=== PATIENT | male | born 1960 | race Caucasian/White ===

== ENCOUNTER 2016-10-21 04:21 | Emergency (ER) | payer BC, OTHER ==
[2016-10-21] MEDS ORDERED: Metoprolol Tartrate 5 MG/5 ML SDV IVPUSH ONE (04:47)
[2016-10-21] MEDS ORDERED: Famotidine 20 MG/2 ML SDV IVPUSH ONE (04:47)
[2016-10-21] MEDS ORDERED: Ticagrelor 90 MG Tab PO ONE (04:47)
--- NOTE | 2016-10-21 04:47 | EDM.PDOC ---
ED HPI GENERAL MEDICAL PROBLEM - General Chief Complaint: General Stated Complaint: chest pain Time Seen by Provider: 10/21/16 04:40 Source of Information: Reports: Patient, EMS, Old Records ([facility] EMR. No paper hospital chart available.) History Limitations: Reports: No Limitations - History of Present Illness INITIAL COMMENTS - FREE TEXT/NARRATIVE: The patient was brought to the emergency room via ambulance with basic transport with one sublingual nitroglycerin tablet and 4 baby aspirin chew and swallow provided by the EMT. The patient has been having some intermittent retrosternal pressure with radiation to the jaw regions bilaterally and the left arm associated with paresthesias, mild diaphoresis, heart flutter, and mild dyspnea with initial pain rated at 6/10 and improvement to 4/10 after arrival to our emergency room. His symptoms started at about 16:00 hours on and did go to work both Monday night and , however persistent symptoms this evening. He is also noted some decreased exercise tolerance during the last few days. No recent history of abdominal pain, heartburn, nausea , diarrhea, melena, gross hematochezia, or any food intolerance, including fatty foods, etc.. The patient also denies any recent fever, cough, wheezing, dyspnea, etc.. Did not take any medications for the above symptoms, although he has not been taking any of his medications for about 6 months and just restarted his medications this past evening. Onset: Gradual Onset Date: 10/19/16 Onset Time: 16:00 Duration: Intermittent Location: Reports: Neck, Chest, Back, Upper Extremity, Left, Radiates to (As above). Denies: Head, Face, Abdomen, Upper Extremity, Right Quality: Reports: Pressure, Stabbing Severity: Moderate Improves with: Reports: None Worsens with: Reports: Breathing (Borderline). Denies: Movement Context: Reports: Other (As above) Associated Symptoms: Reports: Chest Pain, Diaphoresis, Shortness of Breath. Denies: Confusion, Cough, Fever/Chills, Headaches, Loss of Appetite, Malaise, Nausea/Vomiting, Seizure, Syncope, Weakness Treatments [employer]: Reports: Aspirin (As above), Nitroglycerin (As above) Arm Pain Score (Numeric/FACES): 4 - Related Data Allergies Allergy/AdvReac Type Severity Reaction Status Date / Time No Known Allergies Allergy Verified 10/21/16 04:23 Home Meds: Home Meds Hydrochlorothiazide 25 mg PO DAILY 10/21/16 [History] Lisinopril 20 mg PO DAILY 10/21/16 [History] Past Medical History HEENT History: Reports: Impaired Vision, Other (See Below). Denies: Allergic Rhinitis, Cataract, Glaucoma, Hard of Hearing, Macular Degeneration, Retinal Detachment Other HEENT History: Patient wears glasses Cardiovascular History: Reports: None, Hypertension. Denies: Aneurysm, Arrhythmia, Blood Clots/VTE/DVT, CAD, Heart Failure, Heart Murmur, High Cholesterol, MO, PVD, Syncope Respiratory History: Reports: None. Denies: Asthma, Bronchitis, Recurrent, COPD , Intubation, Previous, PE, Pneumothorax, Sleep Apnea, TB Gastrointestinal History: Reports: Colon Polyp, Other (See Below). Denies: Bowel Obstruction, Celiac Disease, Cholelithiasis, Chronic Constipation, Chronic Diarrhea, Diverticulosis, Gastritis, GERD, GI Bleed, Hepatitis, Hiatal Hernia, Inflammatory Bowel Disease, Irritable Bowel Syndrome, Jaundice, Pancreatitis, PUD Other Gastrointestinal History: Current multiple colonic polyps with 7 polyps removed at age 49 and subsequent polypectomies one year thereafter Genitourinary History: Reports: BPH. Denies: Acute Renal Failure, Chronic Renal Insuffiency, Renal Calculus, STD, Urinary Incontinence, UTI, Recurrent Musculoskeletal History: Reports: Arthritis, Back Pain, Chronic, Fracture, Osteoarthritis, Other (See Below). Denies: Amputation, Gout, Neck Pain, Chronic , RA, SLE Other Musculoskeletal History: Nasal fracture at age 24, left thumb fracture at age 36 Neurological History: Reports: None. Denies: Cerebral Aneurysms, Concussion, CVA, Head Trauma, Neuropathy, Peripheral, Seizure, TIA Psychiatric History: Reports: None, Anxiety, Depression. Denies: Abuse, Victim of, ADD, ADHD, Addiction, Psych Hospitalization(s), PTSD, Suicide Attempt Endocrine/Metabolic History: Denies: Diabetes, Type I, Diabetes, Type II, Hypothyroidism, IDDM Hematologic History: Reports: None. Denies: Anemia, Blood Transfusion(s), Iron Deficiency Immunologic History: Reports: None. Denies: AIDS, HIV, SLE Oncologic (Cancer) History: Reports: None. Denies: Basal Cell Carcinoma, Hodgkin's Lymphoma, Leukemia, Lymphoma, Malignant Melanoma, Non-Hodgkin's Lymphoma, Squamous Cell Carcinoma Dermatologic History: Reports: Other (See Below). Denies: Eczema, Psoriasis Other Dermatologic History: Facial papilloma - Infectious Disease History Infectious Disease History: Reports: Chicken Pox, Measles, Mumps. Denies: C- Difficile, Meningitis, Mononucleosis, MRSA, Pertussis (Whooping Cough), Rheumatic Fever, Rubella, Scarlet Fever, Shingles, TB, VRE - Past Surgical History Head Surgeries/Procedures: Reports: None HEENT Surgical History: Reports: Adenoidectomy, Oral Surgery, Tonsillectomy, Other (See Below). Denies: Cataract Surgery, Eye Surgery, Laser Surgery, LASIK , Myringotomy w Tube(s), Naso-Sinus Surgery Other HEENT Surgeries/Procedures: Tonsillectomy at age 17, multiple teeth extractions with complete upper dentures Cardiovascular Surgical History: Reports: None. Denies: Varicose Respiratory Surgical History: Reports: None. Denies: Thoracentesis GI Surgical History: Reports: Colonoscopy, Hernia, Inguinal, Polypectomy, Other (See Below). Denies: Appendectomy, Cholecystectomy, EGD, Hernia, Abdominal, Hernia Repair/Other Other GI Surgeries/Procedures: Bilateral inguinal hernia repair at about age 25 , initial colonoscopy at age 49 with repeat procedure at age 50 with multiple polypectomies 7 character as above Male Surgical History: Reports: Circumcision, Vasectomy, Other (See Below) Other Male Surgeries/Procedures: Circumcision as an infant, vasectomy Endocrine Surgical History: Denies: Thyroid Biopsy Neurological Surgical History: Denies: C-Spine, Discectomy, Laminectomy, Sacral Spine, Spinal Fusion, Vertebroplasty Musculoskeletal Surgical History: Reports: ORIF, Other (See Below). Denies: Amputation, Arthroscopic Procedure, Carpal Tunnel, Ganglion Cyst, Joint Replacement, Shoulder Surgery Other Musculoskeletal Surgeries/Procedures:: ORIF/pin placement of left thumb fracture at about age 36 Oncologic Surgical History: Reports: None Dermatological Surgical History: Reports: None - Past Imaging History Past Imaging History: Reports: None Social & Family History - Family History HEENT: Reports: None. Denies: Glaucoma, Macular Degeneration, Retinal Detachment Cardiac: Reports: Arrhythmia, CAD, Hypertension, MO, Pacemaker, Other (See Below ). Denies: Aneurysm, Blood Clots/VTE/DVT, Heart Failure, Syncope Other Cardiac Family History: Maternal grandmother with history of recurrent MO , paternal grandfather pacemaker in his 70s, mother with hypertension Respiratory: Reports: COPD, Sleep Apnea, Other (See Below). Denies: Asthma, PE , Pneumothorax Other Respiratory Family Hisory: Maternal grandfather with COPD with history of tobacco use, father with sleep apnea GI: Reports: None. Denies: Celiac Disease, Cholelithiasis, Cirrhosis, Colon Polyps, GERD, Inflammatory Bowel Disease, Irritable Bowel Syndrome, PUD : Reports: None, Diabetic Nephropathy, Renal Disease/Insufficiency, Other ( See Below). Denies: Dialysis, Renal Calculus Other Family History: Mother with diabetic nephropathy OBGYN: Reports: None. Denies: Endometriosis, Recurrent Spontaneous Musculoskeletal: Reports: None. Denies: Gout, RA, SLE Neurological: Reports: Alzheimers Disease, CVA, Dementia, Other (See Below). Denies: Cerebral Aneurysms, Migraines, MS, Parkinson's, Seizure, TIA Other Neurological Family History: Father with dementia, mother with some mild Alzheimer's disease, mother with stroke in her 70s Psychiatric: Reports: None. Denies: Abuse, Victim of, ADD, ADHD, Anxiety, Depression, Hallucinations, Mood Swings Endocrine/Metabolic: Reports: Diabetes, type II, IDDM, Other (See Below). Denies: Diabetes, Type I, Hypothyroidism Other Endocrine/Metabolic Family History: Mother with IDDM Hematologic: Reports: None. Denies: Anemia, Transfusion Reaction Immunologic: Reports: None. Denies: AIDS, HIV, SLE Dermatologic: Reports: None. Denies: Eczema, Psoriasis Oncologic: Reports: None. Denies: Colon, Hodgkin's Lymphoma, Leukemia, Lymphoma , Non-Hodgkin's Lymphoma, Prostate, Skin - Tobacco Use Smoking Status *Q: Current Every Day Smoker Tobacco Use Within Last Twelve Months: Cigarettes Years of Tobacco use: 35 Packs/Tins Daily: 0.5 (At age 21, maximum use of 2 packs per day) Smoking Cessation Information Provided To Patient: Yes Second Hand Smoke Exposure: No Second Hand Smoke Education Provided: No - Caffeine Use Caffeine Use: Reports: Soda (2 L of soda per day). Denies: Coffee, Energy Drinks, Tea - Alcohol Use Alcohol Use History: Yes Days Per Week of Alcohol Use: 0 (No previous DWIs, problems with alcohol abuse, etc.) Number of Drinks Per Day: 2 (Usually mixed drinks for holidays) Total Drinks Per Week: 0 Alcohol Use in Last Twelve Months: Yes Alcohol Use Frequency: Socially - Recreational Drug Use Recreational Drug Use: No Drug Use in Last 12 Months: No Recreational Drug Type: Denies: Amphetamines (Speed), Benzodiazepines, Inhalants (Glues, Solvents, Aerosols), LSD (Acid), Marijuana/Hashish, Methamphetamine, Morphine - Living Situation & Occupation Living situation: Reports: ( in 2013 from his second with one child from that relationship, previous from first in the with 2 children from that relationship) Occupation: Employed ([employer]) ED ROS GENERAL - Review of Systems Review Of Systems: See Below Constitutional: Reports: Fatigue (As above), Diaphoresis. Denies: Fever, Chills , Malaise, Weakness, Night Sweats, Decreased Appetite, Weight Loss, Weight Gain HEENT: Reports: Glasses. Denies: Contact Lenses, Dental Pain, Ear Discharge, Ear Pain, Eye Pain, Hearing Loss, Rhinitis, Sinus Problem, Throat Pain, Throat Swelling, Vertigo, Vision Change Respiratory: Reports: Shortness of Breath, Pleuritic Chest Pain (Borderline). Denies: Wheezing, Cough, Sputum Cardiovascular: Reports: Chest Pain, Blood Pressure Problem (Note medication noncompliance as above with elevated blood pressure on arrival), Dyspnea on Exertion, Palpitations. Denies: Claudication, Edema, Lightheadedness, Orthopnea , PND, Syncope Endocrine: Reports: Fatigue GI/Abdominal: Denies: Abdominal Pain, Anorexia, Constipation, Diarrhea, Difficulty Swallowing, Hematemesis, Hematochezia, Mucous in Stool, Nausea, Stool Incontinence, Vomiting : Reports: No Symptoms. Denies: Discharge, Dysuria, Flank Pain, Frequency, Hematuria, Incontinence, Pain, Urgency, Urinary Retention Musculoskeletal: Reports: Neck Pain (Radiated chest pain bilaterally), Arm Pain (Left arm pain from chest radiation with paresthesias). Denies: Shoulder Pain, Back Pain, Leg Pain Skin: Reports: Diaphoresis. Denies: Wound Neurological: Reports: Numbness, Paresthesia, Tingling. Denies: Confusion, Dizziness, Headache, Syncope, Weakness Psychiatric: Reports: No Symptoms. Denies: Agitation, Anxiety, Confusion, Depression Hematologic/Lymphatic: Reports: No Symptoms Immunologic: Reports: No Symptoms ED EXAM, GENERAL - Physical Exam Exam: See Below Exam Limited By: No Limitations General Appearance: Alert, WD/WN, No Apparent Distress Eye Exam: Bilateral Eye: EOMI, Normal Inspection (No nystagmus), PERRL Ears: Normal External Exam, Normal Canal, Hearing Grossly Normal, Normal TMs Nose: Normal Inspection, Normal Mucosa, No Blood Throat/Mouth: Normal Inspection, Normal Lips, Normal Gums, Normal Oropharynx, Normal Voice, No Airway Compromise. No: Normal Teeth (Complete upper dentures with only a few remaining lower teeth in somewhat poor repair), Dysphagia, Perioral Cyanosis Head: Atraumatic, Normocephalic. No: Facial Swelling, Facial Tenderness, Sinus Tenderness Neck: Normal Inspection, Supple, Non-Tender, Full Range of Motion. No: Carotid Bruit, Lymphadenopathy (L), Lymphadenopathy (R), Thyromegaly Respiratory/Chest: No Respiratory Distress, Lungs Clear, Normal Breath Sounds, No Accessory Muscle Use, Chest Non-Tender. No: Pleural Rub, Retractions Cardiovascular: Normal Peripheral Pulses, No Edema, No Gallop, No JVD, No Murmur , No Rub, Tachycardia (No extrasystoles at time of exam). No: Systolic Murmur, Gallop/S3, Gallop/S4, Extra Beats, Friction Rub Peripheral Pulses: 4+: Radial (L), Radial (R), Dorsalis Pedis (L), Dorsalis Pedis (R) GI/Abdominal: Normal Bowel Sounds, Soft, Non-Tender, No Organomegaly, No Distention, No Abnormal Bruit, No Mass, Pelvis Stable, Other (Obese). No: Guarding (Male) Exam: Deferred Rectal (Males) Exam: Deferred Back Exam: Normal Inspection, Full Range of Motion. No: CVA Tenderness (L), CVA Tenderness (R), Muscle Spasm Extremities: Normal Inspection, Normal Range of Motion, Non-Tender, No Pedal Edema, Normal Capillary Refill. No: Conrado's Sign Neurological: Alert, Oriented, CN II-XII Intact, Normal Cognition, Normal Gait, Normal Reflexes (Negative Babinski's), No Motor/Sensory Deficits Psychiatric: Normal Affect, Normal Mood Skin Exam: Warm, Dry, Intact, Normal Color, No Rash. No: Diaphoretic, Wound/ Incision Lymphatic: No Adenopathy EKG INTERPRETATION EKG Date: 10/21/16 Time: 04:30 Rhythm: Other (Sinus tachycardia with occasional PACs) Rate (Beats/Min): 105 [place]: RAD-Right [place] Deviation P-Wave: Present (Diffuse biphasic P wavesmild) QRS: Normal (QRS interval of 0.09 seconds with borderline T-wave inversion in leads 1 and aVL with possible mild ST elevation in these leads and possibly lead 2) ST-T: Other (As above) QT: Normal AR/PQ Interval: 0.16 seconds Comparison: NA - No Prior EKG EKG Interpretation Comments: 1. Lateral wall cardiac ischemia with possible STEMI 2. PAC Course - Vital Signs Last Recorded V/S: Last Vital Signs Temp 36.7 C 10/21/16 04:23 Pulse 92 10/21/16 06:00 Resp 16 10/21/16 06:00 BP 178/109 H 10/21/16 06:00 Pulse Ox 100 10/21/16 06:00 Vital Signs - 24 hr 10/21/16 10/21/16 10/21/16 04:23 04:47 04:55 Temperature [ 36.7 C Oral] Pulse, 105 H Peripheral Pulse, 94 105 H 99 Peripheral [ Pulse Oximetry] Respiratory 20 20 20 Rate Blood Pressure 157/97 H Blood Pressure 163/104 H 147/107 H 157/97 H [Left Upper Arm ] O2 Sat by Pulse 94 L 97 99 Oximetry 10/21/16 10/21/16 10/21/16 05:00 05:15 05:30 Temperature [ Oral] Pulse, Peripheral Pulse, 87 86 87 Peripheral [ Pulse Oximetry] Respiratory 20 18 18 Rate Blood Pressure Blood Pressure 157/97 H 169/103 H 182/127 H [Left Upper Arm ] O2 Sat by Pulse 99 100 100 Oximetry 10/21/16 10/21/16 10/21/16 05:31 05:45 06:00 Temperature [ Oral] Pulse, Peripheral Pulse, 93 92 Peripheral [ Pulse Oximetry] Respiratory 18 16 Rate Blood Pressure 182/127 H Blood Pressure 168/90 H 178/109 H [Left Upper Arm ] O2 Sat by Pulse 100 100 Oximetry - Orders/Labs/Meds Orders: Active Orders 24 hr Category Date Time Status Cardiac Monitoring [RC] . DIRECTED Care 10/21/16 04:47 Active EKG Documentation Completion [RC] ASDIRECTED Care 10/21/16 04:47 Active Oxygen Therapy, ED [RC] CONTINUOUS Care 10/21/16 04:47 Active Peripheral IV Care [RC] . DIRECTED Care 10/21/16 04:47 Active Peripheral IV Care [RC] . DIRECTED Care 10/21/16 05:10 Ordered Pulse Oximetry [RC] CONTINUOUS Care 10/21/16 04:47 Active Up With Assistance [RC] PFP Care 10/21/16 04:47 Active Vital Signs [RC] PFP Care 10/21/16 04:47 Active Nothing per Oral Now Diet [DIET] Diet 10/21/16 Breakfast Active Chest 1V Frontal [CR] Stat Exams 10/21/16 04:30 Ordered Heparin Sodium/D5W [Heparin 25,000 Units in D5W 500 ML] Med 10/21/16 05:15 Ordered 25,000 units in 500 ml IV TITRATE Nitroglycerin [Nitrostat] Med 10/21/16 05:28 Stat 0.4 mg SL ONETIME STA Sodium Chloride 0.9% [Saline Flush] Med 10/21/16 04:47 Active 10 ml FLUSH ASDIRECTED PRN Sodium Chloride 0.9% [Saline Flush] Med 10/21/16 05:10 Ordered 10 ml FLUSH ASDIRECTED PRN Obtain Past Medical Record [OM.PC] Urgent Oth 10/21/16 04:47 Active Peripheral IV Insertion Adult [OM.PC] Stat Oth 10/21/16 04:47 Ordered Peripheral IV Insertion Adult [OM.PC] Stat Oth 10/21/16 05:10 Ordered Resuscitation Status Stat Resus Stat 10/21/16 04:47 Ordered Medication Orders Heparin Sodium/Dextrose (Heparin 25,000 Units In D5w 500 Ml) 25,000 units in 500 mls @ 20 mls/hr IV TITRATE TIMMY; 1,000 UNITS/HR PRN Reason: Protocol Last Admin: 10/21/16 05:26 Dose: 1,000 units/hr, 20 mls/hr Nitroglycerin (Nitrostat) 0.4 mg SL ONETIME STA Stop: 10/22/16 05:29 Last Admin: 10/21/16 05:31 Dose: 0.4 mg Sodium Chloride (Saline Flush) 10 ml FLUSH ASDIRECTED PRN PRN Reason: Keep Vein Open Last Admin: 10/21/16 05:16 Dose: 10 ml Admin: 10/21/16 05:00 Dose: 10 ml Admin: 10/21/16 04:57 Dose: 10 ml Sodium Chloride (Saline Flush) 10 ml FLUSH ASDIRECTED PRN PRN Reason: Keep Vein Open Labs: Laboratory Tests 10/21/16 10/21/16 10/21/16 Range/Units 04:40 04:40 04:40 WBC 11.4 H (4.0-10.2) K/uL RBC 5.59 H (4.33-5.41) M/uL Hgb 16.7 (13.1-16.8) g/dL Hct 48.0 (39.0-49.0) % MCV 85.9 (84.0-98.0) fL MCH 29.9 (28.2-33.3) pg MCHC 34.8 (31.7-36.0) g/dL RDW 13.9 (11.2-14.1) % Plt Count 202 (150-350) K/uL Neut % (Auto) 76.8 (45.0-80.0) % Lymph % (Auto) 14.5 (10.0-50.0) % [place] % (Auto) 7.9 (2.0-14.0) % Eos % (Auto) 0.4 (0.0-5.0) % Baso % (Auto) 0.4 (0.0-2.0) % Neut # (Auto) 8.78 H (1.40-7.00) K/uL Lymph # (Auto) 1.66 (0.50-3.50) K/uL [place] # (Auto) 0.90 (0.00-1.00) K/uL Eos # (Auto) 0.05 (0.00-0.50) K/uL Baso # (Auto) 0.05 (0.00-0.20) K/uL PT 10.1 (9.8-11.7) SEC INR 1.0 APTT 25.8 (23.5-30.0) SEC D-Dimer, Quantitative < 100 (0-400) ng/mL Sodium (136-145) mmol/L Potassium (3.5-5.1) mmol/L Chloride (98-107) mmol/L Carbon Dioxide (21.0-32.0) mmol/L BUN (7-18) mg/dL Creatinine (0.51-1.17) mg/dL Est Cr Clr Drug Dosing mL/min Estimated GFR (MDRD) mL/min Glucose (74-106) mg/dL Hemoglobin A1c (4.3-5.7) % Lactic Acid (0.4-2.0) mmol/L Uric Acid (2.6-7.2) mg/dL Calcium (8.5-10.1) mg/dL Magnesium (1.8-2.4) mg/dL Total Bilirubin (0.2-1.0) mg/dL AST (15-37) U/L ALT (12-78) U/L Alkaline Phosphatase (46-116) IU/L Creatine Kinase (26-308) U/L Creatine Kinase Index (0.0-2.5) % CK-MB (CK-2) (0.00-3.60) ng/mL Troponin I (0.000-0.056) ng/mL [id number] Pept (0-125) pg/mL Total Protein (6.4-8.2) g/dL Albumin (3.4-5.0) g/dL TSH, Ultra Sensitive (0.358-3.740) mIU/mL 10/21/16 10/21/16 10/21/16 Range/Units 04:40 04:40 04:40 WBC (4.0-10.2) K/uL RBC (4.33-5.41) M/uL Hgb (13.1-16.8) g/dL Hct (39.0-49.0) % MCV (84.0-98.0) fL MCH (28.2-33.3) pg MCHC (31.7-36.0) g/dL RDW (11.2-14.1) % Plt Count (150-350) K/uL Neut % (Auto) (45.0-80.0) % Lymph % (Auto) (10.0-50.0) % [place] % (Auto) (2.0-14.0) % Eos % (Auto) (0.0-5.0) % Baso % (Auto) (0.0-2.0) % Neut # (Auto) (1.40-7.00) K/uL Lymph # (Auto) (0.50-3.50) K/uL [place] # (Auto) (0.00-1.00) K/uL Eos # (Auto) (0.00-0.50) K/uL Baso # (Auto) (0.00-0.20) K/uL PT (9.8-11.7) SEC INR APTT (23.5-30.0) SEC D-Dimer, Quantitative (0-400) ng/mL Sodium 133 L (136-145) mmol/L Potassium 4.3 (3.5-5.1) mmol/L Chloride 97 L (98-107) mmol/L Carbon Dioxide 26.3 (21.0-32.0) mmol/L BUN 16 (7-18) mg/dL Creatinine 0.94 (0.51-1.17) mg/dL Est Cr Clr Drug Dosing 89.52 mL/min Estimated GFR (MDRD) > 60 mL/min Glucose 549 H* (74-106) mg/dL Hemoglobin A1c 12.5 H (4.3-5.7) % Lactic Acid 2.4 H (0.4-2.0) mmol/L Uric Acid 5.9 (2.6-7.2) mg/dL Calcium 8.6 (8.5-10.1) mg/dL Magnesium 1.8 (1.8-2.4) mg/dL Total Bilirubin 0.3 (0.2-1.0) mg/dL AST 38 H (15-37) U/L ALT 45 (12-78) U/L Alkaline Phosphatase 119 H (46-116) IU/L Creatine Kinase 150 (26-308) U/L Creatine Kinase Index 5.6 H (0.0-2.5) % CK-MB (CK-2) 8.40 H* (0.00-3.60) ng/mL Troponin I 3.039 H* (0.000-0.056) ng/mL [id number] Pept 825 H (0-125) pg/mL Total Protein 6.6 (6.4-8.2) g/dL Albumin 3.2 L (3.4-5.0) g/dL TSH, Ultra Sensitive 0.469 (0.358-3.740) mIU/mL Meds: Medications Generic Name Dose Route Start Last Admin Trade Name Freq PRN Reason Stop Dose Admin Heparin Sodium/Dextrose 25,000 units in 500 mls @ 20 mls/hr 10/21/16 05:15 05:26 Heparin 25,000 Units In D5w 500 Ml IV 1,000 units/hr TITRATE TIMMY 20 mls/hr Protocol Administration 1,000 UNITS/HR Nitroglycerin 0.4 mg 10/21/16 05:28 10/21/16 05:31 Nitrostat SL 10/22/16 05:29 0.4 mg ONETIME STA Administration Sodium Chloride 10 ml 10/21/16 04:47 10/21/16 06:18 Saline Flush FLUSH 10 ml ASDIRECTED PRN Administration Keep Vein Open Sodium Chloride 10 ml 10/21/16 05:10 Saline Flush FLUSH ASDIRECTED PRN Keep Vein Open Discontinued Medications Generic Name Dose Route Start Last Admin Trade Name Freq PRN Reason Stop Dose Admin Famotidine 40 mg 10/21/16 04:47 10/21/16 04:56 Pepcid IVPUSH 10/21/16 04:48 40 mg ONETIME ONE Administration Furosemide 60 mg 10/21/16 05:29 10/21/16 05:32 Lasix IVPUSH 10/21/16 05:30 60 mg NOW ONE Administration Heparin Sodium (Porcine) 5,000 units 10/21/16 05:09 10/21/16 05:15 Heparin Sodium IVPUSH 10/21/16 05:10 5,000 units ONETIME ONE Administration Labetalol HCl 10 mg 10/21/16 05:55 10/21/16 06:02 Normodyne IVPUSH 10/21/16 05:56 10 mg ONETIME ONE Administration Protocol Metoprolol Tartrate 2.5 mg 10/21/16 04:47 10/21/16 04:55 Lopressor IVPUSH 10/21/16 04:48 2.5 mg ONETIME ONE Administration Ticagrelor 180 mg 10/21/16 04:47 10/21/16 04:58 Brilinta PO 10/21/16 04:48 180 mg ONETIME ONE Administration - Radiology Interpretation Free Text/Narrative:: nurse monitoring with initial sinus tachycardia in the 100s with improvement to the 90s prior to transfer. Occasional PVCs noted Chest x-ray, portable, shows evidence of moderate pulmonary obstructive disease with mild cardiomegaly and mild centralized CHF/pulmonary hypertension. No pulmonary infiltrates, pneumothorax, etc. Departure - Departure Time of Disposition: 06:10 Disposition: DC/Tfer to Acute Hospital 02 Condition: Good Clinical Impression: MO, Myocardial infarction, CHF, Congestive heart failure, Hypertension, Diabetes mellitus, PVCs (premature ventricular contractions), PAC (premature atrial contraction), Hyponatremia, Elevated LFTs, Hypoalbuminemia - Discharge Information Referrals: PCP,None [Primary Care Provider] - Forms: ED Department Discharge, Interfacility Transfer EMTALA - Problem List & Annotations (1) MO, Myocardial infarction SNOMED Code(s): 88503122 Code(s): I21.3 - ST ELEVATION (STEMI) MYOCARDIAL INFARCTION OF [facility] SITE Status: Acute Priority: High Current Visit: Yes Onset Date: 10/21/16 Annotation/Comment:: Chest pain protocol initiated in the emergency immediately upon patient's arrival with aggressive therapy as above. Patient was started on IV heparin infusion with initial 5000 unit sodium heparin bolus. Telephone consultation at 05:[address] Wilson, hospitalist at [facility], who does accept the patient for direct admission and further treatment and evaluation. No further treatment recommendations given. Secondary to his acute MO accepting physician is in agreement with delaying IV insulin administration for the time being, and this will be addressed at patient's arrival to their facility. Evidence of lateral wall cardiac ischemia with borderline STEMI. EKG faxed to accepting physician. Subsequent telephone consultation at 06:30 hours with the hospitalist and psychology fellow, Dr. Dubon, who both reviewed the above EKG and have elected to call this a non-STEMI further heart catheterization land during this hospitalization. Note that patient was chest pain free shortly after initiation of medical therapy as above with no chest pain or other anginal-type symptoms at time of transfer. [facility] form completed by me and faxed to that facility concerning patient's hospital transfer with blank [employer] form already provided to the patient at transfer for his accepting physicians. (2) CHF, Congestive heart failure SNOMED Code(s): 67124003 Code(s): I50.9 - HEART FAILURE, UNSPECIFIED Status: Acute Priority: High Current Visit: Yes Onset Date: 10/21/16 Annotation/Comment:: IV Lasix given in the emergency room. Cardiology consultation on patient's arrival. Echocardiogram depending on his clinical course (3) Hypertension SNOMED Code(s): 00097888 Code(s): I10 - ESSENTIAL (PRIMARY) HYPERTENSION Status: Acute Priority: High Current Visit: Yes Annotation/Comment:: Blood pressure refractory to medical therapy with IV Lasix, subungual nitroglycerin, IV Lopressor, and IV labetalol given in the emergency room. Paramedics will continue to observe his blood pressures closely during transport with additional IV Lopressor and sublingual nitroglycerin as needed depending on his clinical course Qualifiers: Hypertension type: essential hypertension Qualified Code(s): I10 - Essential (primary) hypertension (4) Diabetes mellitus SNOMED Code(s): 00467303 Code(s): E11.9 - TYPE 2 DIABETES MELLITUS WITHOUT COMPLICATIONS Status: Acute Priority: High Current Visit: Yes Onset Date: 10/21/16 Annotation/ Comment:: Newly diagnosed with limited previous preventative healthcare and patient noncompliant with medical as above. Patient will likely need to be started on insulin with additional initiation of diabetic teaching, etc. by accepting providers. Note significantly elevated glycosylated hemoglobin. Urine for microalbumin advisable Qualifiers: Diabetes mellitus type: type 2 Diabetes mellitus complication status: without complication Diabetes mellitus oysterman insulin use: without oysterman use Qualified Code(s): E11.9 - Type 2 diabetes mellitus without complications (5) Elevated LFTs SNOMED Code(s): 197043133 Code(s): R79.89 - OTHER SPECIFIED ABNORMAL FINDINGS OF BLOOD CHEMISTRY Status: Acute Priority: Medium Current Visit: Yes Onset Date: 10/21/16 Annotation/Comment:: Mildly elevated LFTs likely secondary to CHF and/or fatty liver with lipid panel recommended (6) Hypoalbuminemia SNOMED Code(s): 893733266 Code(s): E88.09 - [facility] DISORDERS OF PLASMA-PROTEIN METABOLISM, NEC Status: Chronic Priority: Medium Current Visit: Yes Onset Date: 10/21/16 Annotation/Comment:: Consider high-protein Glucerna supplements (7) Hyponatremia SNOMED Code(s): 82687269 Code(s): E87.1 - HYPO-OSMOLALITY AND HYPONATREMIA Status: Acute Priority : Medium Current Visit: Yes Onset Date: 10/21/16 Annotation/Comment:: Mild hyponatremia likely secondary to CHF (8) PVCs (premature ventricular contractions) SNOMED Code(s): 56227796 Code(s): I49.3 - VENTRICULAR PREMATURE DEPOLARIZATION Status: Acute Priority: Medium Current Visit: Yes Onset Date: 10/21/16 Annotation/ Comment:: Newly diagnosed and nonsymptomatic. Note beta lisa therapy given as above (9) PAC (premature atrial contraction) SNOMED Code(s): 501282017 Code(s): I49.1 - ATRIAL PREMATURE DEPOLARIZATION Status: Acute Priority: High Current Visit: Yes Onset Date: 10/21/16 Annotation/Comment:: As above - Problem List Review Problem List Initiated/Reviewed/Updated: Yes - My Orders Last 24 Hours: My Active Orders 10/21/16 04:30 Chest 1V Frontal [CR] Stat 10/21/16 04:47 Cardiac Monitoring [RC] . DIRECTED EKG Documentation Completion [RC] ASDIRECTED Oxygen Therapy, ED [RC] CONTINUOUS Peripheral IV Care [RC] . DIRECTED Pulse Oximetry [RC] CONTINUOUS Up With Assistance [RC] PFP Vital Signs [RC] PFP Sodium Chloride 0.9% [Saline Flush] 10 ml FLUSH ASDIRECTED PRN Obtain Past Medical Record [OM.PC] Urgent Peripheral IV Insertion Adult [OM.PC] Stat Resuscitation Status Stat 10/21/16 05:10 Peripheral IV Care [RC] . DIRECTED Sodium Chloride 0.9% [Saline Flush] 10 ml FLUSH ASDIRECTED PRN Peripheral IV Insertion Adult [OM.PC] Stat 10/21/16 05:15 Heparin Sodium/D5W [Heparin 25,000 Units in D5W 500 ML] 25,000 units in 500 ml IV TITRATE 10/21/16 05:28 Nitroglycerin [Nitrostat] 0.4 mg SL ONETIME STA 10/21/16 Breakfast Nothing per Oral Now Diet [DIET] - Assessment/Plan Last 24 Hours: My Active Orders 10/21/16 04:30 Chest 1V Frontal [CR] Stat 10/21/16 04:47 Cardiac Monitoring [RC] . DIRECTED EKG Documentation Completion [RC] ASDIRECTED Oxygen Therapy, ED [RC] CONTINUOUS Peripheral IV Care [RC] . DIRECTED Pulse Oximetry [RC] CONTINUOUS Up With Assistance [RC] PFP Vital Signs [RC] PFP Sodium Chloride 0.9% [Saline Flush] 10 ml FLUSH ASDIRECTED PRN Obtain Past Medical Record [OM.PC] Urgent Peripheral IV Insertion Adult [OM.PC] Stat Resuscitation Status Stat 10/21/16 05:10 Peripheral IV Care [RC] . DIRECTED Sodium Chloride 0.9% [Saline Flush] 10 ml FLUSH ASDIRECTED PRN Peripheral IV Insertion Adult [OM.PC] Stat 10/21/16 05:15 Heparin Sodium/D5W [Heparin 25,000 Units in D5W 500 ML] 25,000 units in 500 ml IV TITRATE 10/21/16 05:28 Nitroglycerin [Nitrostat] 0.4 mg SL ONETIME STA 10/21/16 Breakfast Nothing per Oral Now Diet [DIET] Assessment:: As above Plan: As above. Extensive precautions were given to the patient, who is in agreement with the treatment plan. Ambulance transfer with supervisor fine grading accompaniment
[2016-10-21] MEDS: Sodium Chloride 0.9% 10 ML Syringe FLUSH PRN ×4 (04:57→06:18)
[2016-10-21 05:07] LABS: CHLORIDE,CL 97 mmol/L (98-107); SODIUM,NA 133 mmol/L (136-145)
[2016-10-21] MEDS ORDERED: Heparin Sodium 5,000 Units/ML Vial IVPUSH ONE (05:09)
[2016-10-21] MEDS ORDERED: Sodium Chloride 0.9% 10 ML Syringe FLUSH PRN (05:10)
[2016-10-21] MEDS ORDERED: Heparin Sodium/D5W 25,000 UNITS/500 ML BAG IV SCH (05:15)
[2016-10-21] MEDS ORDERED: Nitroglycerin 0.4 MG Tab.SL SL STA (05:28)
[2016-10-21] MEDS ORDERED: Furosemide 40 MG/4 ML VIAL IVPUSH ONE (05:29)
[2016-10-21] MEDS ORDERED: Labetalol 20 MG/4 ML Syringe IVPUSH ONE (05:55)
[2016-10-21 06:47] VITALS: BP 178/109
== END 2016-10-21 06:10 ==
LOC: LL.ED 04:21
DX: I21.3 ST elevation (STEMI) myocardial infarction of unspecified site (principal); I11.0 Hypertensive heart disease with heart failure; I50.9 Heart failure, unspecified; E11.9 Type 2 diabetes mellitus without complications; E87.1 Hypo-osmolality and hyponatremia; I49.1 Atrial premature depolarization; R79.89 Other specified abnormal findings of blood chemistry; M19.90 Unspecified osteoarthritis, unspecified site; F17.210 Nicotine dependence, cigarettes, uncomplicated; I49.3 Ventricular premature depolarization; E88.09 Other disorders of plasma-protein metabolism, not elsewhere classified; Z96.22 Myringotomy tube(s) status; Z90.89 Acquired absence of other organs; Z79.899 Other long term (current) drug therapy
CPT/HCPCS: 36415; 71010; 80053; 82550; 82553; 83036; 83605; 83735; 83880; 84443; 84484; 84550; 85025; 85379; 85610; 85730; 93005; 96365; 96374; 96375; 99285; A9270; J1644; J1940; J7050; J3490; S0028